=== PATIENT | female | born 1955 | race Caucasian/White ===

== ENCOUNTER 2019-03-28 17:08 | Emergency (ER) | payer MEDICARE, SELFPAY ==
[2019-03-28 17:10] VITALS: BP 150/64; PULSE 70; RESP 19; TEMP 36.1; O2SAT 100
--- NOTE | 2019-03-28 17:32 | ED.DENTAL ---
HPI - Dental/Oral General Chief complaint: Dental/Oral Stated complaint: dental pain Time Seen by Provider: 03/28/19 17:15 Source: patient Mode of arrival: ambulatory Limitations: no limitations History of Present Illness HPI Narrative: This is a 63 year old female that presents to the ER for right sided upper tooth pain after a procedure 2 days ago. Reports she had a root canal at the [facility]. Reports since she has been having throbbing pain in the tooth. Reports she has been taking OTC pain medication with little relief. Reports she has an appointment for follow up, but not until the beginning of April. Denies fever, erythema or edema. MD Complaint: tooth pain Location: Tooth # (3) Related Data Home Medications Medication Instructions Recorded Confirmed aripiprazole mg 03/28/19 rosuvastatin mg 03/28/19 Allergies Allergy/AdvReac Type Severity Reaction Status Date / Time melatonin Allergy Mild Rash Verified 03/28/19 17:22 brexpiprazole Allergy Unknown Unknown Verified 03/28/19 17:13 Penicillins Allergy Unknown Unknown Verified 03/28/19 17:13 zolpidem Allergy Unknown Unknown Verified 03/28/19 17:13 Review of Systems Review of Systems: Narrative: CONSTITUTIONAL: Denies fever ENT: Reports dentalgia All systems reviewed & are unremarkable except as noted in HPI and below PMFSH Past Medical History Medical History (Updated 03/28/19 @ 17:39 by Yesica Pabon PA-C) History of bipolar disorder Surgical History Surgical History (Updated 03/28/19 @ 17:36 by Yesica Pabon PA-C) History of cholecystectomy History of hysterectomy History of tonsillectomy History of tubal ligation Family History Family History (Updated 09/05/17 @ 08:17 by DOCTOR UNKNOWN) Father Diabetes mellitus Family history of elevated blood lipids Mother Family history of elevated blood lipids Social History Social History (Updated 03/28/19 @ 17:36 by Yesica Pabon PA-C) Smoking status: Former smoker Smoking end date: 02/19/08 Alcohol intake: never Substance use: never Gender identity (if verbalized by the patient): Male Exam Narrative: Exam Narrative: GENERAL: Well-appearing, well-nourished, and in no acute distress. HEAD: Normocephalic, atraumatic. EYES: EOMI. ENT: Mucous membranes moist. Oropharynx without tonsillar hypertrophy exudate or other lesions. Tooth #3 tender to palpation without surrounding edema, erythema or fluctuance. No trismus NECK: Supple. No adenopathy or masses. CHEST: Clear to auscultation. No respiratory distress. No wheezes rales or rhonchi HEART: Regular rate and rhythm. No murmur heard. Normal peripheral pulses. EXTREMITIES: Normal range of motion. No edema. SKIN: Warm, dry, no rash. NEURO: No focal deficits. Alert and oriented x3. PSYCH: Normal mood and affect Course Vital Signs Vital signs: Vital Signs Temperature 97.0 F L 03/28/19 17:10 Pulse Rate 70 03/28/19 17:10 Respiratory Rate 19 03/28/19 17:10 Blood Pressure 150/64 H 03/28/19 17:10 Pulse Oximetry 100 03/28/19 17:10 Temperature 97.0 F L 03/28/19 17:10 Pulse Rate 70 03/28/19 17:10 Respiratory Rate 19 03/28/19 17:10 Blood Pressure 150/64 H 03/28/19 17:10 Pulse Oximetry 100 03/28/19 17:10 MDM - Dental/Oral MDM Narrative Medical decision making narrative: Patient presents to the ER for toothache after recent dental procedure. She is afebrile and nontoxic appearing. No surrouding erythema or fluctuance to suggest abscess. Patient given a dose of toradol in the ED and will be started on oral antibiotics. She is to follow up with her dentist Critical Care Time Critical Care Time Critical Care Time: No Discharge Plan Discharge Clinical Impression: Toothache Patient Disposition: Home, Self-Care Condition: Stable Instructions: Antibiotic Form, Toothache (ED) Additional Instructions: Return to the Emergency Department if you experience fever >101, increasing
[2019-03-28] MEDS: CLINDAMYCIN HCL 150 MG CAP 300 MG PO (17:54)
[2019-03-28] MEDS: KETOROLAC (*BKC) 60 MG/2 ML VIAL IM (17:54)
--- NOTE | 2019-03-28 17:54 | PC.NURSE ---
toradol inj to left deltoid per orders
== END 2019-03-28 19:14 | disposition home or self-care (01) ==
PROVIDERS: Emergency Provider Emergency Medicine; PCP Family Medicine
DX: K08.89 Other specified disorders of teeth and supporting structures (principal); Z87.891 Personal history of nicotine dependence; F31.9 Bipolar disorder, unspecified
CPT/HCPCS: 96372; 99283; A9270; J1885

== ENCOUNTER 2019-08-19 07:59 | Emergency (ER) | payer MEDICARE, SELFPAY ==
--- NOTE | ~2019-08-19 | XR_ITS ---
EXAMINATION: XR chest 2V EXAM DATE: 08/19/2019 08:57 INDICATION: Left-sided upper chest pain, weakness. Lightheadedness. TECHNIQUE: Frontal and lateral projections of the chest obtained and reviewed. Comparison is made to prior examination from 12/25/2018. FINDINGS: The lungs are clear. There are no pleural effusions. The cardiomediastinal silhouette is within normal limits. There is no pneumothorax suspected. The bones and soft tissues are unremarkab le. There are cholecystectomy clips. There is no significant interval change. IMPRESSION: No acute cardiopulmonary findings. Reviewed, dictated and finalized at location B.
[2019-08-19 08:20] VITALS: BP 103/53; PULSE 62; RESP 17; TEMP 36.9; O2SAT 100
--- NOTE | 2019-08-19 08:25 | ECG_ITS ---
Measurements Intervals [place] Rate: 57 P: 42 TX: 164 QRS: 31 QRSD: 91 T: 30 QT: 403 QTc: 395 Interpretive Statements SINUS BRADYCARDIA BORDERLINE T WAVE ABNORMALITY- ANTERIOR LEADS BORDERLINE ECG Electronically Signed On 08-19-2019 8:47:25 CDT by Rodolfo Lawrence D.O.
[2019-08-19 08:29] VITALS: PULSE 71
[2019-08-19] MEDS: ASPIRIN 81 MG CHEWABLE TABLET 324 MG PO (08:38)
--- NOTE | 2019-08-19 08:53 | PC.NURSE ---
Tried getting blood from pt and was unable to obtain on first try, then radiology came to take pt for xray. I will attempt again when pt returns.
--- NOTE | 2019-08-19 09:14 | PC.NURSE ---
pt to xray via stretcher
[2019-08-19 09:20] LABS: Basophils Absolute Auto 0.1 K/mm3 (0.0-0.1); Basophils Percent Auto 0.7 % (0.2-1.2); Eosinophils Absolute Auto 0.2 K/mm3 (0-0.3); Eosinophils Percent Auto 2.7 % (0-4.4); Hematocrit 43.2 % (37.0-47.0); Hemoglobin 14.5 g/dL (12.0-15.0); Immature Granulocyte Absolute 0.01 K/mm3 (0.00-0.031); Immature Granulocyte Percent A 0.1 % (0-0.5); Lymphocytes Absolute Auto 1.65 K/mm3 (0.9-3.2); Lymphocytes Percent Auto 24.5 % (18.3-44.2); Mean Corpuscular HGB Conc 33.6 g/dl (32-36); Mean Corpuscular Hemoglobin 30.1 pg (26-34); Mean Corpuscular Volume 89.6 fl (80-100); Mean Platelet Volume 12.6 fl (7.4-10.4); Monocytes Absolute Auto 0.4 K/mm3 (0.1-0.6); Monocytes Percent Auto 5.6 % (2.6-8.5); Neutrophils Absolute Auto 4.5 K/mm3 (1.3-6.7); Neutrophils Percent Auto 66.4 % (45.5-73.1); Platelet Count Result 146 k/mm3 (150-375); Red Blood Count 4.82 M/mm3 (4.2-5.4); Red Cell Distribution Width 12.1 % (11.5-14.5); White Blood Count 6.7 K/mm3 (4.5-10.0)
[2019-08-19 09:30] LABS: Prothrombin Time 12.5 Seconds (11.1-14.7)
[2019-08-19 09:31] LABS: Partial Thromboplastin Time 20.7 SECONDS (22.3-36.8)
[2019-08-19 09:34] LABS: Blood Urea Nitrogen 27 mg/dL (7-17); Calcium 10.1 mg/dL (8.4-10.2); Carbon Dioxide 30 mmol/L (22-30); Chloride 104 mmol/L (98-107); Estimated CRCL calculation 81 ml/min; Estimated Glomerular Filt Rate > 60; Glucose 119 mg/dL (65-105); Potassium 3.8 mmol/L (3.4-5.0); Sodium 138 mmol/L (137-145)
[2019-08-19 09:38] VITALS: BP 105/62; PULSE 73; RESP 21; O2SAT 100
[2019-08-19 09:46] LABS: Troponin I < 0.012 ng/mL (0.000-0.034)
--- NOTE | 2019-08-19 10:39 | ED.CHESTPAIN ---
HPI - Chest Pain General Chief Complaint: Chest Pain Stated Complaint: chest pain, dizzy Time Seen by Provider: 08/19/19 09:04 History of Present Illness HPI narrative: Patient is a 64-year-old female with history of mitral valve prolapse that is mild. 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 Dizziness proceeded with chest pain. Both lasted about 30 minutes. Lightheadedness was that things appeared yellow. She had no dyspnea/nausea/vomiting. She was mildly sweaty. No change with head rotation or physical exertion. Has not had similar symptoms previously. She is concerned it may be related to her mitral valve prolapse. No history of coronary disease. Symptoms resolved at this time. Originally chest pain was dull and located to the left upper chest near the shoulder. Related Data Home Medications Medication Instructions Recorded Confirmed aripiprazole mg 03/28/19 rosuvastatin mg 03/28/19 Allergies Allergy/AdvReac Type Severity Reaction Status Date / Time melatonin Allergy Mild Rash Verified 08/19/19 08:27 brexpiprazole Allergy Unknown Unknown Verified 08/19/19 08:27 Penicillins Allergy Unknown Unknown Verified 08/19/19 08:27 zolpidem Allergy Unknown Unknown Verified 08/19/19 08:27 Review of Systems Review of Systems: All systems reviewed & are unremarkable except as noted in HPI and below Constitutional: Constitutional: Denies chills, Denies fever(s) and Denies weakness Eyes: Eyes: Reports change in vision Cardiovascular: Cardiovascular: Reports chest pain, Denies rapid heart rate and Denies radiating jaw, neck or arm pain Gastrointestinal: Gastrointestinal: Denies abdominal pain, Reports nausea and Denies vomiting [facility] Past Medical History Medical History (Updated 08/19/19 @ 13:28 by David Osborn MD) History of bipolar disorder Mitral valve prolapse Surgical History Surgical History (Updated 03/28/19 @ 17:36 by Yesica Pabon PA-C) History of cholecystectomy History of hysterectomy History of tonsillectomy History of tubal ligation Family History Family History (Updated 09/05/17 @ 08:17 by DOCTOR UNKNOWN) Father Diabetes mellitus Family history of elevated blood lipids Mother Family history of elevated blood lipids Social History Social History (Updated 03/28/19 @ 17:36 by Yesica L. Pabon, PA-C) Smoking status: Former smoker Smoking end date: 02/19/08 Alcohol intake: never Substance use: never Gender identity (if verbalized by the patient): Male Exam Narrative: Exam Narrative: GENERAL: Well-appearing, well-nourished, and in no acute distress. HEAD: Normocephalic, atraumatic. ENT: Mucous membranes moist. CHEST: Clear to auscultation. No respiratory distress. No reproducible chest wall tenderness HEART: Bradycardic and regular. Normal peripheral pulses. ABDOMEN: Soft, nontender, nondistended. EXTREMITIES: Normal range of motion. No edema. SKIN: Warm, dry, no rash. NEURO: Alert and oriented x3. Course Vital Signs Vital signs: Vital Signs Temperature 98.5 F 08/19/19 08:20 Pulse Rate 62 08/19/19 08:20 Respiratory Rate 17 08/19/19 08:20 Blood Pressure 103/53 L 08/19/19 08:20 Pulse Oximetry 100 08/19/19 08:20 Temperature 98.5 F 08/19/19 08:20 Pulse Rate 64 08/19/19 13:19 Respiratory Rate 20 08/19/19 13:19 Blood Pressure 106/46 L 08/19/19 13:19 Pulse Oximetry 98 08/19/19 13:19 MDM - Chest Pain Lab Data Result diagrams: 08/19/19 09:14 08/19/19 09:14 Labs: Lab Results 08/19/19 08/19/19 08/19/19 Range/Units 09:14 09:14 09:14 WBC 6.7 (4.5-10.0) K/mm3 RBC 4.82 (4.2-5.4) M/mm3 Hgb 14.5 (12.0-15.0) g/dL Hct 43.2 (37.0-47.0) % MCV 89.6 (80-100) fl MCH 30.1 (26-34) pg MCHC 33.6 (32-36) g/dl RDW 12.1 (11.5-14.5) % Plt Count 146 L (150-375) k/mm3 MPV 12.6 H (7.4-10.4) fl
[2019-08-19 11:11] VITALS: BP 99/54; PULSE 73; RESP 22; O2SAT 99
[2019-08-19 12:22] VITALS: BP 106/46; PULSE 63; RESP 16; O2SAT 100
[2019-08-19 12:58] LABS: Troponin I < 0.012 ng/mL (0.000-0.034)
[2019-08-19 13:19] VITALS: BP 106/46; PULSE 64; RESP 20; O2SAT 98
== END 2019-08-19 14:00 | disposition home or self-care (01) ==
PROVIDERS: Emergency Provider Emergency Medicine; PCP Family Medicine
DX: R07.9 Chest pain, unspecified (principal); I34.1 Nonrheumatic mitral (valve) prolapse; F31.9 Bipolar disorder, unspecified; Z87.891 Personal history of nicotine dependence; R00.1 Bradycardia, unspecified; R94.31 Abnormal electrocardiogram [ECG] [EKG]
CPT/HCPCS: 36415; 71046; 80048; 84484; 85025; 85610; 85730; 93005; 99284; A9270

== ENCOUNTER 2019-12-09 11:43 | Outpatient (CLI) | payer MEDICARE, SELFPAY ==
--- NOTE | ~2019-12-09 | MM_ITS ---
EXAMINATION: MM screening oscar BI w bela HISTORY: Screening mammogram TECHNIQUE: Craniocaudal and mediolateral oblique 3-D tomosynthesis images were obtained and synthetic 2-D images were generated. CAD analysis was submitted and interpreted. COMPARISON: 10/10/2018, 09/23/2014 bilateral digital screening mammogram examinations BREAST PARENCHYMAL COMPOSITION: There are scattered areas of fibroglandular density. FINDINGS: There is no evidence of suspicious mass, calcification, or architectural distortion to sugg est malignancy in either breast. There has been no suspicious interval change. IMPRESSION: 1. No mammographic evidence of malignancy. 2. Recommend routine screening mammography in one year. BI-RADS Category 1: Negative Reviewed, dictated and finalized at location A.
== END 2019-12-09 11:44 | disposition home or self-care (01) ==
LOC: ANHIMG 11:44
PROVIDERS: PCP Family Medicine; Visit Provider Family Medicine
DX: Z12.31 Encounter for screening mammogram for malignant neoplasm of breast (principal)
CPT/HCPCS: 77063; 77067

== ENCOUNTER 2020-02-26 14:53 | Emergency (ER) | payer MEDICARE, SELFPAY ==
--- NOTE | ~2020-02-26 | XR_ITS ---
XR chest 2V DATE: 02/26/2020 15:45 INDICATION: Left chest pain for one day TECHNIQUE: PA and lateral views COMPARISON: 08/19/2019 PA and lateral views FINDINGS: Normal heart size. No hilar or mediastinal enlargement. No pulmonary infiltrate or conso lidation, pulmonary vascular congestion or pleural effusion or pneumothorax. Status post cholecystectomy. IMPRESSION: No active cardiopulmonary disease Reviewed, dictated and finalized at location B. ER BARBER
--- NOTE | 2020-02-26 14:55 | ECG_ITS ---
Measurements Intervals [place] Rate: 106 P: 47 MO: 141 QRS: -71 QRSD: 87 T: 18 QT: 337 QTc: 449 Interpretive Statements SINUS TACHYCARDIA LEFT ANTERIOR FASCICULAR BLOCK ABNORMAL ECG Electronically Signed On 02-26-2020 15:09:00 [employer]IDE [employer] by Rodolfo Lawrence D.O.
[2020-02-26 15:05] VITALS: BP 173/74; PULSE 108; RESP 20; TEMP 36.3; O2SAT 96
[2020-02-26 15:29] LABS: Basophils Absolute Auto 0.1 K/mm3 (0.0-0.1); Eosinophils Absolute Auto 0.1 K/mm3 (0-0.3); Eosinophils Percent Auto 1.8 % (0-4.4); Hematocrit 42.1 % (37.0-47.0); Hemoglobin 14.6 g/dL (12.0-15.0); Immature Granulocyte Absolute 0.02 K/mm3 (0.00-0.031); Immature Granulocyte Percent A 0.3 % (0-0.5); Lymphocytes Absolute Auto 2.46 K/mm3 (0.9-3.2); Mean Corpuscular HGB Conc 34.7 g/dl (32-36); Mean Corpuscular Hemoglobin 30.9 pg (26-34); Mean Platelet Volume 11.9 fl (7.4-10.4); Monocytes Absolute Auto 0.5 K/mm3 (0.1-0.6); Monocytes Percent Auto 6.8 % (2.6-8.5); Neutrophils Absolute Auto 3.9 K/mm3 (1.3-6.7); Neutrophils Percent Auto 55.1 % (45.5-73.1); Platelet Count Result 184 k/mm3 (150-375); Red Blood Count 4.73 M/mm3 (4.2-5.4); Red Cell Distribution Width 11.8 % (11.5-14.5)
[2020-02-26 15:33] VITALS: BP 142/68; PULSE 92; PULSE 99; RESP 18; O2SAT 98
[2020-02-26 15:42] LABS: Anion Gap 9 mmol/L (8-16); Blood Urea Nitrogen 19 mg/dL (7-17); Calcium 10.3 mg/dL (8.4-10.2); Carbon Dioxide 27 mmol/L (22-30); Chloride 102 mmol/L (98-107); Estimated CRCL calculation 73 ml/min; Estimated Glomerular Filt Rate > 60; Glucose 115 mg/dL (65-105); INR 0.9; Potassium 3.8 mmol/L (3.4-5.0); Prothrombin Time 12.4 Seconds (11.1-14.7); Sodium 138 mmol/L (137-145)
[2020-02-26 15:49] LABS: Partial Thromboplastin Time < 20.0 SECONDS (22.3-36.8)
[2020-02-26 15:54] LABS: Troponin I < 0.012 ng/mL (0.000-0.034)
[2020-02-26 16:24] VITALS: BP 142/68; PULSE 99; RESP 18; TEMP 36.3; O2SAT 98
[2020-02-26 16:49] VITALS: BP 137/61; PULSE 96; RESP 16; O2SAT 98
--- NOTE | 2020-02-26 16:51 | ED.CHESTPAIN ---
HPI - Chest Pain General Chief Complaint: Chest Pain Stated Complaint: abnormal ekg Time Seen by Provider: 02/26/20 16:47 Source: patient Mode of arrival: ambulatory Limitations: no limitations History of Present Illness HPI narrative: Patient 64-year-old female complaining of chest pain, midsternal, 6 out of 10, pressure, worse with exertion started this morning. Patient was seen at [facility], was advised to go to the ER for abnormal EKG. patient denies any diaphoresis, shortness of breath, abdominal pain, nausea, vomiting, fever or chills. Related Data Home Medications Medication Instructions Recorded Confirmed aripiprazole mg 03/28/19 rosuvastatin mg 03/28/19 citalopram mg 02/26/20 trazodone 02/26/20 02/26/20 Allergies Allergy/AdvReac Type Severity Reaction Status Date / Time melatonin Allergy Mild Rash Verified 02/26/20 14:56 brexpiprazole Allergy Unknown Unknown Verified 02/26/20 14:56 Penicillins Allergy Unknown Unknown Verified 02/26/20 14:56 zolpidem Allergy Unknown Unknown Verified 02/26/20 14:56 Review of Systems Review of Systems: All systems reviewed & are unremarkable except as noted in HPI and below Constitutional: Constitutional: Denies body ache(s), Denies chills, Denies excessive sweating, Denies fatigue, Denies fever(s), Denies headache(s), Denies lethargy, Denies malaise, Denies weakness and Denies weight loss Eyes: Eyes: Denies blurry vision, Denies change in vision and Denies loss of vision ENT: Denies dizziness, Denies ear discharge, Denies headache(s), Denies lip swelling, Denies epistaxis, Denies nasal congestion, Denies neck pain, Denies throat swelling and Denies tongue swelling Cardiovascular: Cardiovascular: Denies diaphoresis, Denies rapid heart rate, Denies edema, Denies irregular heart rhythm, Denies lightheadedness, Denies palpitations, Denies dyspnea and Denies dyspnea on exertion Respiratory: Respiratory: Denies chest congestion, Denies cough, Denies hemoptysis, Denies dyspnea and Denies dyspnea on exertion Gastrointestinal: Gastrointestinal: Denies abdominal pain, Denies melena, Denies hematochezia, Denies diarrhea, Denies nausea, Denies vomiting and Denies hematemesis Musculoskeletal: Musculoskeletal: Denies abnormal gait, Denies deformity, Denies joint swelling, Denies limited range of motion, Denies neck pain and Denies numbness Neurologic: Denies Abnormal speech present, Denies abnormal gait, Denies confusion, Denies dizziness, Denies headache(s), Denies focal weakness, Denies loss of vision, Denies numbness, Denies Other visual disturbances, Denies Sensory deficit (Neuro) and Denies weakness Psychiatric: Psychiatric: Denies confusion, Denies depression, Denies auditory hallucinations, Denies homicidal ideation and Denies suicidal ideation Endocrine: Endocrine: Denies cold intolerance, Denies excessive sweating, Denies fatigue, Denies heat intolerance and Denies palpitations Hematologic/Lymphatic: Hematologic/Lymphatic: Denies easy bleeding and Denies easy bruising Allergic/Immunologic: Allergic/Immunologic: Denies lip swelling, Denies throat swelling and Denies tongue swelling PMFSH Past Medical History Medical History History of bipolar disorder Mitral valve prolapse Surgical History Surgical History History of cholecystectomy History of hysterectomy History of tonsillectomy History of tubal ligation Family History Family History Father Diabetes mellitus Family history of elevated blood lipids Mother Family history of elevated blood lipids Social History Social History Smoking status: Former smoker Smoking end date: 02/19/08 Alcohol intake: never Substance use: never Gender identity (if verbalized by the patient): Fem
[2020-02-26 17:41] VITALS: BP 142/60; PULSE 93; RESP 16; O2SAT 98
[2020-02-26 18:48] LABS: Troponin I < 0.012 ng/mL (0.000-0.034)
== END 2020-02-26 18:40 | disposition left against medical advice (07) ==
PROVIDERS: Emergency Provider Emergency Medicine; PCP Family Medicine
DX: R07.89 Other chest pain (principal); I34.1 Nonrheumatic mitral (valve) prolapse; F31.9 Bipolar disorder, unspecified; Z87.891 Personal history of nicotine dependence; R00.0 Tachycardia, unspecified; I44.4 Left anterior fascicular block
CPT/HCPCS: 36415; 71046; 80048; 84484; 85025; 85610; 85730; 93005; 99284

== ENCOUNTER → 2020-05-23 09:19 | Outpatient (CLI) | payer MEDICARE, SELFPAY ==
--- NOTE | ~2020-05-23 | XR_ITS ---
EXAMINATION: XR ankle LT min 3V, XR foot LT min 3V DATE: 05/23/2020 09:45 INDICATION: Left foot and ankle pain TECHNIQUE: 1. Anteroposterior, oblique, mortise, and lateral views of the affected ankle were obtained. 2. Dorsal plantar, lateral and 2 oblique views of the left foot were obtained. COMPARISON: None. FINDINGS: Alignment of the left foot and ankle is normal. No fracture. Small Achilles and plantar calcaneal spu rs. Mild osteoarthritis at the first metatarsophalangeal and a few interphalangeal joints. Soft tissu es are unremarkable. No left ankle joint effusion. IMPRESSION: 1. No acute osseous abnormality. Reviewed, dictated and finalized at location B. IMPRESSION: 1. No acute osseous abnormality.
--- NOTE | ~2020-05-23 | CT_ITS ---
EXAMINATION:CT lung screening DATE: 05/23/2020 09:50 INDICATION: Personal history of tobacco dependence. Smoker who quit 10 years ago with 52.5 pack year history. TECHNIQUE: Computed tomography (CT) of the chest was performed without intravenous contrast. Automate d exposure control and iterative reconstruction technique were employed. The dose-length product (DLP ) was 192.24 mGy-cm. COMPARISON: None. FINDINGS: There is mild atelectasis bilaterally. There is a 3 mm nodule in left lower lobe. No pleura l effusion. The heart size is normal. No pericardial effusion. There are changes of cholecystectomy. There is severe thoracic spondylosis. There is mild chronic anterior wedging of multiple midthoracic vertebral bodies. IMPRESSION: 1. Lung-RADS category 2: Benign appearance or behavior. Continue annual screening with noncontrast lo w-dose chest CT in 12 months. Reviewed, dictated and finalized at location A. IMPRESSION: 1. Lung-RADS category 2: Benign appearance or behavior. Continue annual screeni ng with noncontrast low-dose chest CT in 12 months.
== END ==
PROVIDERS: PCP Family Medicine; Visit Provider Family Medicine
DX: Z12.2 Encounter for screening for malignant neoplasm of respiratory organs (principal); Z87.891 Personal history of nicotine dependence; M19.072 Primary osteoarthritis, left ankle and foot
CPT/HCPCS: 71271; 73610; 73630

== ENCOUNTER → 2020-06-21 15:53 | Outpatient (CLI) | payer MEDICARE, SELFPAY ==
--- NOTE | ~2020-06-21 | XR_ITS ---
EXAMINATION: XR hip BI wo pelvis DATE: 06/21/2020 17:25 INDICATION: Bilateral hip pain. TECHNIQUE: 2 views of right hip and 2 views of left hip were obtained. COMPARISON: None. FINDINGS: Bone alignment is normal. No fracture. The hip joint spaces are normal. A surgical clip ove rlies right pelvis. IMPRESSION: 1. Normal hips. Reviewed, dictated and finalized at location A. IMPRESSION: 1. Normal hips.
--- NOTE | ~2020-06-21 | XR_ITS ---
EXAMINATION: XR lumbar spine 2-3V DATE: 06/21/2020 17:25 INDICATION: Low back pain. TECHNIQUE: 3 views of lumbar spine were obtained. COMPARISON: None. FINDINGS: Bone alignment is normal. Vertebral body heights are normal. There is severely decreased di sc height at L4-L5 with endplate remodeling. There are endplate osteophytes at most levels. There is multilevel mild facet joint osteoarthritis. Surgical clips in the right upper quadrant are likely fro m cholecystectomy. IMPRESSION: 1. Severe lumbar spondylosis. Reviewed, dictated and finalized at location A.
== END ==
PROVIDERS: PCP Family Medicine; Visit Provider Family Medicine
DX: M62.81 Muscle weakness (generalized) (principal); M47.816 Spondylosis without myelopathy or radiculopathy, lumbar region; M25.552 Pain in left hip; M25.551 Pain in right hip
CPT/HCPCS: 72100; 73521

== ENCOUNTER → 2020-07-27 11:57 | Outpatient (CLI) | payer MEDICARE, SELFPAY ==
--- NOTE | ~2020-07-27 | MR_ITS ---
EXAMINATION: MR lumbar spine wo con DATE: 07/27/2020 12:54 INDICATION: Low back pain. Degeneration of lumbar intervertebral disc. TECHNIQUE: Magnetic resonance imaging (MRI) of the lumbar spine was performed without intravenous con trast. Sequences included sagittal T2-weighted FSE, sagittal T2-weighted FS FSE, sagittal T1-weighted FSE, and axial T2-weighted FSE. COMPARISON: Lumbar spine radiographs 06/21/2020 FINDINGS: Bone alignment is normal. There is mild chronic anterior wedging of L1 vertebral body. Ther e are Schmorl's nodes at most levels. There is mildly decreased disc height at L1-L2 and L2-L3. There is severely decreased disc height at L4-L5 with endplate remodeling. The distal spinal cord signal i ntensity is normal. The conus medullaris is at L1-L2. The following disc levels are specifically disc ussed: L1-L2: The disc is bulging. There is mild bilateral facet joint osteoarthritis. There is no neural fo raminal stenosis. There is mild central canal stenosis. L2-L3: The disc is bulging. There is mild bilateral facet joint osteoarthritis. There is mild bilater al neural foraminal stenosis. There is mild central canal stenosis. L3-L4: The disc is bulging. There is mild bilateral facet joint osteoarthritis. There is mild bilater al neural foraminal stenosis. There is mild central canal stenosis. L4-L5: The disc is bulging and has an annular fissure. There is mild bilateral facet joint osteoarthr itis. There is moderate bilateral neural foraminal stenosis. There is mild central canal stenosis. L5-S1: The disc is bulging. There is moderate bilateral facet joint osteoarthritis. There is mild yaya ateral neural foraminal stenosis. There is mild central canal stenosis. IMPRESSION: 1. Severe lumbar spondylosis. Reviewed, dictated and finalized at location A.
== END ==
PROVIDERS: PCP Family Medicine; Visit Provider Family Medicine
DX: M47.817 Spondylosis without myelopathy or radiculopathy, lumbosacral region (principal); M48.07 Spinal stenosis, lumbosacral region
CPT/HCPCS: 72148

== ENCOUNTER 2020-11-07 14:59 | Outpatient (CLI) | payer MEDICARE, SELFPAY ==
[2020-11-07 15:43] LABS: Basophils Absolute Auto 0.1 K/mm3 (0.0-0.1); Basophils Percent Auto 1.1 % (0.2-1.2); Eosinophils Absolute Auto 0.2 K/mm3 (0-0.3); Eosinophils Percent Auto 4.9 % (0-4.4); Hematocrit 39.3 % (37.0-47.0); Hemoglobin 13.2 g/dL (12.0-15.0); Immature Granulocyte Absolute 0.01 K/mm3 (0.00-0.031); Immature Granulocyte Percent A 0.2 % (0-0.5); Lymphocytes Absolute Auto 1.76 K/mm3 (0.9-3.2); Lymphocytes Percent Auto 39.6 % (18.3-44.2); Mean Corpuscular HGB Conc 33.6 g/dl (32-36); Mean Corpuscular Hemoglobin 30.9 pg (26-34); Mean Platelet Volume 12.5 fl (7.4-10.4); Monocytes Absolute Auto 0.3 K/mm3 (0.1-0.6); Monocytes Percent Auto 7.2 % (2.6-8.5); Neutrophils Absolute Auto 2.1 K/mm3 (1.3-6.7); Platelet Count Result 146 k/mm3 (150-375); Red Blood Count 4.27 M/mm3 (4.2-5.4); Red Cell Distribution Width 12.8 % (11.5-14.5); White Blood Count 4.5 K/mm3 (4.5-10.0)
[2020-11-07 15:57] LABS: Alanine Aminotransferase 40 U/L (4-35); Albumin Level 4.4 g/dL (3.5-5.1); Alkaline Phosphatase 60 U/L (38-126); Anion Gap 8 mmol/L (8-16); Aspartate Amino Transferase 41 U/L (14-36); Bilirubin,Total 0.6 mg/dL (0.2-1.3); Blood Urea Nitrogen 15 mg/dL (7-17); Calcium 9.8 mg/dL (8.4-10.2); Carbon Dioxide 24 mmol/L (22-30); Chloride 110 mmol/L (98-107); Cholesterol 141 mg/dL (0-200); Estimated Glomerular Filt Rate > 60; Glucose 100 mg/dL (65-110); HDL Direct 65 mg/dL; Potassium 4.1 mmol/L (3.4-5.0); Sodium 142 mmol/L (137-145); Triglycerides 104 mg/dL (<150)
[2020-11-07 16:08] LABS: LDL Cholesterol Direct 44 mg/dL
[2020-11-07 17:20] LABS: Hemoglobin A1C 5.4 % (<5.7)
[2020-11-07 19:21] LABS: Vitamin D 25 Hydroxy 42.2 ng/mL
== END 2020-11-07 15:00 | disposition home or self-care (01) ==
LOC: ANHLAB 15:01
PROVIDERS: PCP Family Medicine; Visit Provider Family Medicine
DX: E55.9 Vitamin D deficiency, unspecified (principal); R73.9 Hyperglycemia, unspecified; E78.5 Hyperlipidemia, unspecified; I10 Essential (primary) hypertension
CPT/HCPCS: 36415; 80048; 80061; 80076; 82306; 83036; 85025

== ENCOUNTER 2021-02-22 13:28 | Outpatient (CLI) | payer MEDICARE, SELFPAY ==
--- NOTE | ~2021-02-22 | MM_ITS ---
EXAMINATION: MM screening [facility] BI w bela HISTORY: Screening mammogram TECHNIQUE: Craniocaudal and mediolateral oblique 3-D tomosynthesis images were obtained and synthetic 2-D images were generated. CAD analysis was submitted and interpreted. COMPARISON: 12/09/2019, 10/10/2018, 09/23/2014 BREAST PARENCHYMAL COMPOSITION: There are scattered areas of fibroglandular density. FINDINGS: There is no evidence of suspicious mass, calcification, or architectural distortion to sugg est malignancy in either breast. There has been no suspicious interval change. IMPRESSION: 1. No mammographic evidence of malignancy. 2. Recommend routine screening mammography in one year. BI-RADS Category 1: Negative Reviewed, dictated and finalized at location A. K BIOLOGIST
== END 2021-02-22 13:29 | disposition home or self-care (01) ==
LOC: ANHIMG 13:30
PROVIDERS: PCP Family Medicine; Visit Provider Family Medicine
DX: Z12.31 Encounter for screening mammogram for malignant neoplasm of breast (principal)
CPT/HCPCS: 77063; 77067

== ENCOUNTER → 2021-08-17 08:21 | Outpatient (CLI) | payer MEDICARE, SELFPAY ==
--- NOTE | ~2021-08-17 | MR_ITS ---
EXAMINATION: MR lumbar spine wo con DATE: 08/17/2021 09:06 INDICATION: Degeneration of lumbar intervertebral discs. 2 months of low back pain. TECHNIQUE: Magnetic resonance imaging (MRI) of the lumbar spine was performed without intravenous con trast. Sequences included sagittal T2-weighted FSE, sagittal T2-weighted FS FSE, sagittal T1-weighted FSE, and axial T2-weighted FSE. COMPARISON: 08/06/2020 FINDINGS: Alignment of the lumbar spine is normal. Mild thoracic levoscoliosis on the thoracic spine on the cor onal localizer images. Unchanged minimal anterior wedging at L1. Remaining vertebral body heights are normal. There are Schmorl's nodes along multiple endplates in the lumbar and lower thoracic spine. S evere disc height loss at L4-L5 with fibrovascular degenerative endplate changes. Mild disc height lo ss at L1-L2 and L2-L3. Mild fibrofatty degenerative endplate changes at the anterior margin of multip le superior and inferior endplates in the lumbar and lower thoracic spine. Marrow signal is otherwise normal. The conus medullaris terminates at L1. There is normal signal in the caudal spinal cord. Unc hanged 1.6 cm T2 hyperintense left ovarian cyst. Paravertebral soft tissues are unremarkable. The fol lowing disc levels are specifically discussed: T12-L1: Disc is mildly bulging. There is mild right facet joint osteoarthritis. There is no neural fo raminal stenosis. There is mild central canal stenosis. L1-L2: Disc is mildly bulging. There is mild bilateral facet joint osteoarthritis. There is minimal b ilateral neural foraminal stenosis. There is mild central canal stenosis. L2-L3: Moderate diffuse disc bulge. There is mild bilateral facet joint osteoarthritis. There is mild bilateral neural foraminal stenosis. There is mild central canal stenosis. L3-L4: Disc is mildly bulging with superimposed small left foraminal zone disc protrusion. There is m ild bilateral facet joint osteoarthritis. There is mild left and minimal right neural foraminal steno sis. There is mild central canal stenosis. L4-L5: Disc is bulging with annular fissure. There is mild right and moderate left facet joint osteoa rthritis. There is moderate bilateral neural foraminal stenosis. There is mild central canal stenosis . L5-S1: Disc is mildly bulging. There is moderate bilateral facet joint osteoarthritis. There is mild bilateral neural foraminal stenosis. There is no central canal stenosis. IMPRESSION: 1. Minimal progression of lumbar spondylosis, severe at L4-L5 and otherwise mild. Reviewed, dictated and finalized at location A. IMPRESSION: 1. Minimal progression of lumbar spondylosis, severe at L4-L5 and otherwise mil dAngelo
== END ==
PROVIDERS: PCP Family Medicine; Visit Provider Family Medicine
DX: M47.815 Spondylosis without myelopathy or radiculopathy, thoracolumbar region (principal); M48.05 Spinal stenosis, thoracolumbar region; M47.817 Spondylosis without myelopathy or radiculopathy, lumbosacral region; M48.07 Spinal stenosis, lumbosacral region; N83.202 Unspecified ovarian cyst, left side; M41.9 Scoliosis, unspecified
CPT/HCPCS: 72148

== ENCOUNTER 2022-05-07 15:21 | Outpatient (CLI) | payer MEDICARE, SELFPAY ==
--- NOTE | ~2022-05-07 | MM_ITS ---
EXAMINATION: MM screening [facility]scar BI w bela HISTORY: Screening TECHNIQUE: Craniocaudal and mediolateral oblique 3-D tomosynthesis images were obtained and synthetic 2-D images were generated. CAD analysis was submitted and interpreted. COMPARISON: Comparison to multiple prior studies sequentially, with oldest reviewed study dated 07/28. BREAST PARENCHYMAL COMPOSITION: There are scattered areas of fibroglandular density. FINDINGS: There is no evidence of suspicious mass, calcification, or architectural distortion to sugg est malignancy in either breast. There has been no suspicious interval change. IMPRESSION: 1. No mammographic evidence of malignancy. 2. Recommend routine screening mammography in one year. BI-RADS Category 1: Negative Reviewed, dictated and finalized at location A.
== END 2022-05-07 15:22 | disposition home or self-care (01) ==
LOC: ANHIMG 15:23
PROVIDERS: PCP Family Medicine Sports Medicine; Visit Provider Family Medicine Sports Medicine
DX: Z12.31 Encounter for screening mammogram for malignant neoplasm of breast (principal)
CPT/HCPCS: 77063; 77067

== ENCOUNTER 2023-01-19 11:12 | Emergency (ER) | payer MEDICARE, SELFPAY ==
[2023-01-19 11:27] VITALS: BP 157/70; PULSE 69; RESP 16; TEMP 36.5; O2SAT 100
--- NOTE | 2023-01-19 11:58 | ED.SKABFB ---
HPI - Skin/Abscess/Foreign Bdy General Chief complaint: Skin/Abscess/Foreign Body Stated complaint: Hives Time Seen by Provider: 01/19/23 11:55 Source: patient, RN notes reviewed and old records reviewed Mode of arrival: ambulatory Limitations: no limitations History of Present Illness HPI narrative: 67 year old female presents to express care with complaints of thinking she was having an allergic reaction. Patient reports that she had been taking Jenny for about 5-6 days and she states that first couple of days she had some tingling to her lip which she related to nasal congestion and drainage. Patient report that she noted last night itching and rash around and in between her breasts and also some itching to her back . Patient reports that she called her pharmacist and was told to stop the Jenny and to take 2 Benadryl which she took at arond 0700 today. Patient denies any shortness of breath or any difficulty with her swallowing, continues to feel itchy all over. MD complaint: rash Onset (ago): day(s) (1) Severity scale (1-10): 8 Quality: pruritic Treatments prior to arrival: Benadryl Related Data Home Medications Medication Instructions Recorded Confirmed Stool Softener 01/19/23 aripiprazole 10 mg tablet mg 01/19/23 cholecalciferol (vitamin D3) 10 01/19/23 mcg (400 unit) capsule (Vitamin D3) citalopram 20 mg tablet mg 01/19/23 magnesium glycinate 100 mg tablet mg PO 01/19/23 metoprolol succinate 25 mg mg PO 01/19/23 tablet,extended release 24 hr omega-3 fatty acids PO 01/19/23 rosuvastatin 10 mg tablet mg 01/19/23 vitamin B complex (B tablet 01/19/23 Complex-Vitamin B12 tablet) Allergies Allergy/AdvReac Type Severity Reaction Status Date / Time melatonin Allergy Mild Rash Verified 08/27/22 13:08 brexpiprazole Allergy Unknown Unknown Verified 08/27/22 13:08 Penicillins Allergy Unknown Unknown Verified 01/19/23 11:42 zolpidem Allergy Unknown Unknown Verified 08/27/22 13:08 Review of Systems Review of Systems: CONSTITUTIONAL: Denies fever, chills, or sweats. CARDIOVASCULAR: Denies chest pain, palpitations, or edema. RESPIRATORY: Denies cough or dyspnea. SKIN: Reports some rash to her breast area but has had that before especially in the summer, red raised rash area on back that is itchy MUSCULOSKELETAL: Denies joint pain or myalgia. NEUROLOGIC: Denies headache, numbness, or weakness. All systems reviewed & are unremarkable except as noted in HPI and below PMFSH Past Medical History Medical History History of bipolar disorder Mitral valve prolapse Surgical History Surgical History History of cholecystectomy History of hysterectomy History of tonsillectomy History of tubal ligation Family History Family History Father Diabetes mellitus Family history of elevated blood lipids Hypertension Heart disease Mother Family history of elevated blood lipids Hypertension Depression Cerebrovascular accident Thyroid disorder Sibling Diabetes mellitus Thyroid disorder Other Thyroid disorder Social History Social History Smoking status: Former smoker Smoking end date: 02/19/08 Alcohol intake: never Substance use: never Lack of Transportation: No Lack of Food: Never True Current Housing: I Have Housing Concerned About Future Housing: No Difficulty Paying Gas/Electric Bills: No Difficulty Paying for Meds: No Currently Unemployed: No Education: Associate Degree Difficulty w/ Childcare or Family Care: No Gender identity (if verbalized by the patient): Female Comments At time of signature, agree with nursing past medical, surgical, social and family history. There is no relevant family history pertinent to the presenting complaint
== END 2023-01-19 12:18 | disposition home or self-care (01) ==
PROVIDERS: Emergency Provider Registered Nurse; PCP Family Medicine
DX: L50.0 Allergic urticaria (principal); B37.2 Candidiasis of skin and nail; Z87.891 Personal history of nicotine dependence; I34.1 Nonrheumatic mitral (valve) prolapse
CPT/HCPCS: 99213; G0463

== ENCOUNTER 2023-02-12 13:28 | Emergency (ER) | payer MEDICARE, SELFPAY ==
[2023-02-12 14:09] VITALS: BP 151/71; PULSE 82; RESP 20; TEMP 36.8; O2SAT 98
--- NOTE | 2023-02-12 14:24 | ED.URI ---
HPI - URI/Sore Throat General Chief Complaint: Upper Respiratory Infection Stated Complaint: Shortness of Breath and Cough Time Seen by Provider: 02/12/23 14:15 Source: patient Mode of arrival: ambulatory Limitations: no limitations History of Present Illness HPI Narrative: Mariajose is a 67-year-old female patient presenting to the clinic today with complaints of cough and mild shortness of breath. Reports that she went to [facility] and had a COVID and influenza test done and they were negative. States symptoms have been going on for 2 days. Denies any fever or chills. Feels as though she has got a lot of chest congestion. Cough is nonproductive. MD elicited complaint: cough, nasal congestion and other (Chest congestion) Related Data Home Medications Medication Instructions Recorded Confirmed Stool Softener 01/19/23 aripiprazole 10 mg tablet mg 01/19/23 cholecalciferol (vitamin D3) 10 01/19/23 mcg (400 unit) capsule (Vitamin D3) citalopram 20 mg tablet mg 01/19/23 magnesium glycinate 100 mg tablet mg PO 01/19/23 metoprolol succinate 25 mg mg PO 01/19/23 tablet,extended release 24 hr omega-3 fatty acids PO 01/19/23 rosuvastatin 10 mg tablet mg 01/19/23 vitamin B complex (B tablet 01/19/23 Complex-Vitamin B12 tablet) Allergies Allergy/AdvReac Type Severity Reaction Status Date / Time fexofenadine [From Jenny-D] Allergy Severe Hives Verified 02/01/23 10:27 pseudoephedrine Allergy Severe Hives Verified 02/01/23 10:27 [From Jenny-D] melatonin Allergy Mild Rash Verified 02/01/23 10:26 brexpiprazole Allergy Unknown Unknown Verified 02/01/23 10:26 Penicillins Allergy Unknown Unknown Verified 02/01/23 10:26 zolpidem Allergy Unknown Unknown Verified 02/01/23 10:26 Review of Systems Review of Systems: Pertinent positives per HPI. Patient denies any fever, chills, rash, headache, visual changes, dizziness, chest pain, palpitations, nausea, vomiting, diarrhea, constipation, abdominal pain, or any urinary issues. [facility] Past Medical History Medical History History of bipolar disorder Mitral valve prolapse Surgical History Surgical History History of cholecystectomy History of hysterectomy History of tonsillectomy History of tubal ligation Family History Family History Father Diabetes mellitus Family history of elevated blood lipids Hypertension Heart disease Mother Family history of elevated blood lipids Hypertension Depression Cerebrovascular accident Thyroid disorder Sibling Diabetes mellitus Thyroid disorder Other Thyroid disorder Social History Social History Smoking status: Former smoker Smoking end date: 02/19/08 Alcohol intake: never Substance use: never Do You Feel Safe in your Home?: Yes Lack of Transportation: No Lack of Food: Never True Current Housing: I Have Housing Concerned About Future Housing: No Difficulty Paying Gas/Electric Bills: No Difficulty Paying for Meds: No Currently Unemployed: No Education: Associate Degree Difficulty w/ Childcare or Family Care: No Gender identity (if verbalized by the patient): Female Comments At the time of my signature, I reviewed and agree with the nursing past medical, surgical, social, and family history. There is no relevant family history pertinent to the patient complaint. Exam Narrative: General: Well-developed, well nourished, in no apparent distress Head: Normocephalic, atraumatic Eyes: Pupils equally round and reactive to light bilaterally, EOM intact, sclera and conjunctive clear, no discharge, lids normal Ears: TMs intact and clear, ear canals clear, no drainage, grossly hearing normal. Nose: Nares patent, no discharge, no inflammation,
== END 2023-02-12 14:31 | disposition home or self-care (01) ==
PROVIDERS: Emergency Provider Nurse Practitioner Family; PCP Family Medicine
DX: R05.1 Acute cough (principal); J06.9 Acute upper respiratory infection, unspecified; Z87.891 Personal history of nicotine dependence; I34.1 Nonrheumatic mitral (valve) prolapse
CPT/HCPCS: 99213; G0463

== ENCOUNTER 2023-02-19 13:54 | Outpatient (CLI) | payer MEDICARE, SELFPAY ==
--- NOTE | ~2023-02-19 | XR_ITS ---
XR chest 2V DATE: 02/19/2023 14:06 INDICATION: Cough for one week TECHNIQUE: PA and lateral chest COMPARISON: May 23, 2020 CT lung screening February 26, 2020 2 view chest FINDINGS: Normal heart size. No hilar or mediastinal enlargement. No pulmonary infiltrate or consolid ation, pleural effusion or pulmonary vascular congestion or pneumothorax. Diffuse osteopenia. Status post cholecystectomy. Mild thoracic dextroscoliosis and degenerative change. IMPRESSION: No active cardiopulmonary disease Reviewed, dictated and finalized at location [facility]
== END 2023-02-19 13:55 | disposition home or self-care (01) ==
PROVIDERS: PCP Family Medicine; Visit Provider Family Medicine
DX: R05.9 Cough, unspecified (principal)
CPT/HCPCS: 71046

== ENCOUNTER 2023-05-16 14:45 | Outpatient (CLI) | payer MEDICARE, SELFPAY ==
--- NOTE | ~2023-05-16 | CT_ITS ---
EXAMINATION: CT lung screening DATE: 05/16/2023 15:06 INDICATION: Nicotine dependence TECHNIQUE: Computed tomography (CT) of the chest was performed without intravenous contrast. The dose -length product was 257.10 mGy-cm. Automated exposure control and iterative reconstruction technique were employed. COMPARISON: CT dated 05/23/2020 FINDINGS: Heart size normal. No significant pleural or pericardial effusion. Status post cholecystect vasiliy. No endobronchial lesions. No focal airspace disease. No pneumothorax. No thoracic lymphadenopath y. Status post cholecystectomy. Stable 3 mm left lower lobe nodule. Mild chronic anterior wedging of the midthoracic vertebra. IMPRESSION: 1. Lung-RADS category 2: Benign appearance or behavior. Continue annual screening with noncontrast lo w-dose chest CT in 12 months. Reviewed, dictated and finalized at location [facility]. IMPRESSION: 1. Lung-RADS category 2: Benign appearance or behavior. Continue annual screeni ng with noncontrast low-dose chest CT in 12 months.
== END 2023-05-16 14:46 | disposition home or self-care (01) ==
PROVIDERS: PCP Family Medicine; Visit Provider Family Medicine
DX: Z12.2 Encounter for screening for malignant neoplasm of respiratory organs (principal); Z87.891 Personal history of nicotine dependence
CPT/HCPCS: 71271

== ENCOUNTER 2023-06-25 12:53 | Outpatient (CLI) | payer MEDICARE, SELFPAY ==
--- NOTE | 2023-06-25 13:00 | ECG_ITS ---
SEE SCANNED COPY FOR CONFIRMED REPORT. MTDD
== END 2023-06-25 12:54 | disposition home or self-care (01) ==
LOC: ANHSURGERY 12:57
PROVIDERS: PCP Family Medicine; Visit Provider Plastic Surgery
DX: Z01.818 Encounter for other preprocedural examination (principal); I51.9 Heart disease, unspecified
CPT/HCPCS: 93005

== ENCOUNTER 2023-06-26 00:40 | Day surgery (SDC) | payer MEDICARE, SELFPAY ==
[2023-06-20 13:52] VITALS: BMI 33.8
--- NOTE | 2023-06-20 14:12 | PC.NURSE ---
Addendum entered by Grisel Melendez RN 06/20/23 14:17: DISREGARD THIS INSTRUCTION SHEET. SEE UPDATE Original Note: Report to the Outpatient Waiting Room, entrance under the green pavilion located off [facility], at time _6:00AM on date _06/26/23 . Planned Procedure Time: __7:30AM . Time changes happen often and if your time is changed the preop area will call you the afternoon before. - You and your visitor will be asked to self-screen and do not enter if you have any COVID symptoms. - A mask is optional within the hospital at this time. Patients may have clear liquids (water, carbonated beverages, clear teas, apple juice) until 3 hours prior to surgery with a maximum of 20 ounces. - No food from midnight until time of surgery. Take the following medications with a SIP of water the morning of surgery: ___CITALOPRAM DO NOT STOP ANY OF YOUR OTHER PRESCRIPTION MEDICATIONS PRIOR TO SURGERY ?EXCEPT THE FOLLOWING Medications to discontinue per physician ____HOLD ALL VITAMINS/SUPPLEMENTS 3 DAYS PRE-OP PER ANESTHESIA Date to take last dose 06/22/23 Please no make-up, nail british, hairspray, perfume, deodorant, or body powder the day of surgery. No jewelry (including any body piercings) or valuables the day of surgery, leave them at home. Please take a shower or bath the night before, or the morning of, surgery with an antibacterial soap. Wear comfortable, loose fitting clothing. - Jewelry must be removed prior to entering the operating room. Rings and piercings that are not removed may be cut off. - The hospital will not accept responsibility for valuables. - Please leave all valuables, including medications, at home the day of surgery. If you are going home after surgery, a licensed van driver must drive you home. - NO public transportation without another adult if you receive anesthesia. - We recommend that an adult stay with you for 24 hours following discharge. - We also recommend that you do not drive, make important decision, drink alcoholic beverages, or take any drugs that were not prescribed by your health care provider for at least 24 hours after your discharge time. Follow any additional instructions given to you from your surgeon. If you or anyone in your household have experienced Covid symptoms in the past week, please notify your surgeon or the nurse liaison at the phone number below for possible testing. Telephone instructions given to ____PATIENT and asked if any additional questions and then verbalized understanding. Patient advised to call surgeon office or pre surgery nurse liaison [phone] if any additional questions.
--- NOTE | 2023-06-20 14:15 | PC.NURSE ---
Report to the Outpatient Waiting Room, entrance under the green pavilion located off [facility], at time ___6:00AM____ on date ___06/26/23____. Planned Procedure Time: __7:30AM . Time changes happen often and if your time is changed the preop area will call you the afternoon before. - You and your visitor will be asked to self-screen and do not enter if you have any COVID symptoms. - A mask is optional within the hospital at this time. NO FOOD OR DRINKS FOR 8 HRS PRE-OP PER DR BE- LAST FOOD/DRINK IS AT 11:30PM NIGHT BEFORE SURGERY. Take the following medications with a SIP of water the morning of surgery: ____CITALOPRAM DO NOT STOP ANY OF YOUR OTHER PRESCRIPTION MEDICATIONS PRIOR TO SURGERY ?EXCEPT THE FOLLOWING Medications to discontinue per physician ___HOLD ALL VITAMINS/SUPPLEMENTS 3 DAYS PRE-OP PER ANESTHESIA Date to take last dose 06/22/23 Please no make-up, nail albanian, hairspray, perfume, deodorant, or body powder the day of surgery. No jewelry (including any body piercings) or valuables the day of surgery, leave them at home. Please take a shower or bath the night before, or the morning of, surgery with an antibacterial soap. Wear comfortable, loose fitting clothing. - Jewelry must be removed prior to entering the operating room. Rings and piercings that are not removed may be cut off. - The hospital will not accept responsibility for valuables. - Please leave all valuables, including medications, at home the day of surgery. If you are going home after surgery, a licensed local delivery driver must drive you home. - NO public transportation without another adult if you receive anesthesia. - We recommend that an adult stay with you for 24 hours following discharge. - We also recommend that you do not drive, make important decision, drink alcoholic beverages, or take any drugs that were not prescribed by your health care provider for at least 24 hours after your discharge time. Follow any additional instructions given to you from your surgeon. If you or anyone in your household have experienced Covid symptoms in the past week, please notify your surgeon or the nurse liaison at the phone number below for possible testing. Telephone instructions given to ___PATIENT and asked if any additional questions and then verbalized understanding. Patient advised to call surgeon office or pre surgery nurse liaison [phone] if any additional questions.
[2023-06-26] VITALS (7 sets, daily range): BP systolic 118–165; BP diastolic 54–89; PULSE 65–79; RESP 12–20; TEMP 36.2–37.3; O2SAT 98–100
--- NOTE | 2023-06-26 06:54 | WPDANESEPPF ---
Anes - Initial Pre Proc Eval Procedure: Operation Date: 06/26/23 07:30 Proposed Procedures p Bilateral Breast Reduction - Dinesh Paul MD Date/Time: 06/26/23 06:54 Surgeon: Dinesh Paul MD Pre Op Diagnosis: hypertophy of breasts Patient Data Age: 67 Gender: F Height: 1.7 m Weight: 99.9 kg Last Vital Signs Temp 37.3 C 06/26/23 06:30 Pulse 71 06/26/23 06:30 Resp 14 06/26/23 06:30 BP 131/60 06/26/23 06:30 Pulse Ox 98 06/26/23 06:30 O2 Del Method Room Air 06/26/23 06:30 Allergies Allergy/AdvReac Type Severity Reaction Status Date / Time fexofenadine [From Jenny-D] Allergy Severe Hives Verified 06/20/23 13:46 pseudoephedrine Allergy Severe Hives Verified 06/20/23 13:46 [From Jenny-D] melatonin Allergy Mild Rash Verified 06/20/23 13:46 brexpiprazole Allergy Unknown ANXIOUS, Verified 06/20/23 13:46 AGITATION Penicillins Allergy Unknown Rash Verified 06/20/23 13:46 zolpidem Allergy Unknown AGITATION Verified 06/20/23 13:46 clindamycin Allergy Hives Verified 06/20/23 13:46 Home Medications Medication Instructions Recorded Confirmed Type aripiprazole 10 mg tablet 10 mg PO HS 01/19/23 06/20/23 History cholecalciferol (vitamin D3) 10 100 mcg PO DAILY 01/19/23 06/20/23 History mcg (400 unit) capsule (Vitamin D3) citalopram 20 mg tablet 20 mg PO QAM 01/19/23 06/20/23 History metoprolol succinate 25 mg 25 mg PO HS 01/19/23 06/20/23 History tablet,extended release 24 hr omega-3 fatty acids 2 cap PO DAILY 01/19/23 06/20/23 History rosuvastatin 10 mg tablet 10 mg PO HS 01/19/23 06/20/23 History vitamin B complex (B 1 tablet PO 2XW 01/19/23 06/20/23 History Complex-Vitamin B12 tablet) docusate sodium 100 mg capsule 100 mg PO DAILY 06/20/23 06/20/23 History (Stool Softener) magnesium 250 mg tablet 250 mg PO DAILY 06/20/23 06/20/23 History Patient hx anesthesia problems: none Family hx anesthesia problems: none Results Review: All pre-operative results and documents have been reviewed as part of the pre-operative evaluation. [facility] Past Medical History Medical History Arthritis High blood cholesterol History of bipolar disorder Hypertension Mitral valve prolapse Surgical History Surgical History History of cholecystectomy History of hysterectomy History of tonsillectomy History of tubal ligation Family History Family History Father Diabetes mellitus Family history of elevated blood lipids Hypertension Heart disease Mother Family history of elevated blood lipids Hypertension Depression Cerebrovascular accident Thyroid disorder Sibling Diabetes mellitus Thyroid disorder Other Thyroid disorder Social History Social History Smoking packs per day: 1 Smoking cigarettes per day: 20.0 Years smoked: 30 Smoking pack-years: 30.00 Smoking status: Former smoker Tobacco type: cigarettes Smoking end date: 08/18/10 Alcohol intake: never Substance use: never Do You Feel Safe in your Home?: Yes Lack of Transportation: No Lack of Food: Never True Current Housing: I Have Housing Concerned About Future Housing: No Difficulty Paying Gas/Electric Bills: No Difficulty Paying for Meds: No Currently Unemployed: No Education: Associate Degree Difficulty w/ Childcare or Family Care: No Living arrangements: alone Gender identity (if verbalized by the patient): Female Spiritual care concerns: No Anes - Eval Final PreProcedure Day of Procedure 06/26/23 06:54 Patient weight: obese Heart: regular rate and rhythm Lungs: clear to auscultation Airway: Mallampati scale class III Neurological: alert and oriented Last oral intake: >/= 8 hours ASA classification: II
[2023-06-26] MEDS: LACTATED RINGERS 1,000 ML 30 ML IV CONT (07:00)
--- NOTE | 2023-06-26 07:06 | PM.HPGS ---
History of Present Illness History of Present Illness Chief complaint: hypertophy of breasts Narrative: Patient seen and examined in pre-operative holding area. No interval change in medical history or symptoms. Patient remembers previous discussion of benefits and alternatives to procedure. Continues to desire to proceed with bilateral breast reduction . I reviewed the risks including but not limited to bleeding ,infection, asymmetry, undesireable cosmetic appearance, partial/total skin/nipple loss, no change or worsening of symptoms, change in sensation. I discussed the possible use of assistants and their level of participation in the case. Patient stated understanding and signed the consent form wishing to proceed Review of Systems Review of Systems: All systems reviewed & are unremarkable except as noted in HPI and below PMFSH Past Medical History Medical History Arthritis High blood cholesterol History of bipolar disorder Hypertension Mitral valve prolapse Surgical History Surgical History History of cholecystectomy History of hysterectomy History of tonsillectomy History of tubal ligation Family History Family History Father Diabetes mellitus Family history of elevated blood lipids Hypertension Heart disease Mother Family history of elevated blood lipids Hypertension Depression Cerebrovascular accident Thyroid disorder Sibling Diabetes mellitus Thyroid disorder Other Thyroid disorder Social History Social History Smoking packs per day: 1 Smoking cigarettes per day: 20.0 Years smoked: 30 Smoking pack-years: 30.00 Smoking status: Former smoker Tobacco type: cigarettes Smoking end date: 08/18/10 Alcohol intake: never Substance use: never Do You Feel Safe in your Home?: Yes Lack of Transportation: No Lack of Food: Never True Current Housing: I Have Housing Concerned About Future Housing: No Difficulty Paying Gas/Electric Bills: No Difficulty Paying for Meds: No Currently Unemployed: No Education: Associate Degree Difficulty w/ Childcare or Family Care: No Living arrangements: alone Gender identity (if verbalized by the patient): Female Spiritual care concerns: No Meds Home Medications and Allergies Home Medications Medication Instructions Recorded Confirmed Type aripiprazole 10 mg tablet 10 mg PO HS 01/19/23 06/20/23 History cholecalciferol (vitamin D3) 10 100 mcg PO DAILY 01/19/23 06/20/23 History mcg (400 unit) capsule (Vitamin D3) citalopram 20 mg tablet 20 mg PO QAM 01/19/23 06/20/23 History metoprolol succinate 25 mg 25 mg PO HS 01/19/23 06/20/23 History tablet,extended release 24 hr omega-3 fatty acids 2 cap PO DAILY 01/19/23 06/20/23 History rosuvastatin 10 mg tablet 10 mg PO HS 01/19/23 06/20/23 History vitamin B complex (B 1 tablet PO 2XW 01/19/23 06/20/23 History Complex-Vitamin B12 tablet) docusate sodium 100 mg capsule 100 mg PO DAILY 06/20/23 06/20/23 History (Stool Softener) magnesium 250 mg tablet 250 mg PO DAILY 06/20/23 06/20/23 History Allergies Allergy/AdvReac Type Severity Reaction Status Date / Time fexofenadine [From Jenny-D] Allergy Severe Hives Verified 06/20/23 13:46 pseudoephedrine Allergy Severe Hives Verified 06/20/23 13:46 [From Jenny-D] melatonin Allergy Mild Rash Verified 06/20/23 13:46 brexpiprazole Allergy Unknown ANXIOUS, Verified 06/20/23 13:46 AGITATION Penicillins Allergy Unknown Rash Verified 06/20/23 13:46 zolpidem Allergy Unknown AGITATION Verified 06/20/23 13:46 clindamycin Allergy Hives Verified 06/20/23 13:46 Vital Signs Vital Signs - 24 hr 06/26/23 06:30 Temperature 37.3 C Pulse Rate 71 Respiratory Rate 14 Blood Pressure
--- NOTE | 2023-06-26 07:07 | P.OP_ITS ---
Procedure Note - Detailed Date of Procedure 06/26/23 Pre-op Diagnosis hypertophy of breasts Post-op Diagnosis Same Procedure Performed b/l breast reduction Surgeon Dinesh Paul MD Circulating Nurse Karen Pearson PA-C Anesthesia General Description of Procedure The patient was seen in the preoperative holding area, consent form was signed and the breasts were marked for inferior pedicle Mccracken pattern reduction. The patient was taken back to the operating room and placed on the table in a supine position. Time-out was performed with Anesthesia, surgeon, and staff agreeing on patient's name, site, and surgery to be performed. SCDs were placed in the lower extremities and inflated. Antibiotics were given IV. After general anesthesia was administered the breasts were prepped and draped in usual sterile fashion. I first took my attention to the right breast were I used a saline moistened lap pad and a Jerardo clamp to create a breast tourniquet.. I used a 38 mm nipple Sizer to circumscribe the nipple-areolar complex and then proceeded with de epithelializing a 7 cm wide inferior pedicle. I made my other skin incisions with a 15 blade scalpel. I then used Bovie cautery to elevate my superior skin flaps and Luis's plane down to the level of the chest wall and exposing the breast tissue I proceeded with resection of 550 g of tissue from the right breast. I irrigated with normal saline and hemostasis with Bovie cautery. I plicated the pedicle with 2-0 Vicryl suture. I closed the T junction with 2-0 Prolene. 3-0 Vicryl was used for dermis. The nipple was brought out 5.5 cm above the inframammary fold at the most prominent portion of the breast at the breast midline and secured with 3-0 Vicryl suture. 4-0 Monocryl was used for subcuticular closure. The nipple was viable with good cap refill. I took my attention to the left breast where the same procedure was performed. I used the saline moistened lap pad and Jerardo plan to create a breast tourniquet. 38 mm nipple Sizer was used to circumscribe the nipple-areolar complex. Proceeded with de epithelializing a 7 cm wide inferior pedicle. I made my other skin incisions and elevated skin flaps with Bovie cautery increase plane to close the breast tissue. I then proceeded with resection of 511 g of tissue from the left breast. This resulted in a breast that appeared to be similar in volume and shape to the right breast. I plicated the pedicle with 2- 0 Vicryl suture. Hemostasis was obtained with Bovie cautery after irrigation with normal saline. The T-junction was closed with 2-0 Prolene. 3-0 Vicryl was used for dermis. Again the nipple was brought out 5-1/2 cm above the inframammary fold at the most prominent portion of the breast at the breast midline and secured with 3-0 Vicryl suture. 4-0 Monocryl was used for subcuticular closure. The nipple appeared viable with good cap refill. There was reasonable symmetry and shape to the breasts. 20 cc of 1% lidocaine with epinephrine and 0.5% Marcaine plain was injected along the anterior axillary line and inframammary fold of each breast. A dressing of Mastisol, Steri-Strips, 4x4s, ABDs and a breast binder was then applied. The patient was awakened from anesthesia and transferred to the recovery room in stable condition. Complications: None Estimated blood loss 50 cc Disposition: Patient tolerated the procedure well and be going later today. Karen Pearson PA-C was essential for positioniig, retraction, resection, closure and dressing placement [facility] Billing Surgery - Charge Forward: Surgery Billing ([id number] same for karen adding mod )
[2023-06-26] MEDS: ceFAZolin 2 GM/D5W 50 ML 2 GM/50 ML BAG IVPB (07:32)
[2023-06-26] MEDS: LIDO 1%/EPINEPHRINE 1:100,000 50 ML VIAL 15 ML INFILTRATE (07:59)
[2023-06-26] MEDS: oxyCODONE HCL (*CRX) 5 MG TAB IR PO (10:30)
--- NOTE | 2023-06-26 10:42 | SUR.OPER ---
MD riojasayed used of formalin for breast specimens
== END 2023-06-26 11:10 | disposition home or self-care (01) ==
PROVIDERS: PCP Family Medicine; Visit Provider Plastic Surgery
PROC: 0HBV0ZZ Excision of Bilateral Breast, Open Approach (ICD-10-PCS; CPT 19318; principal; 2023-06-26 07:30)
DX: N62 Hypertrophy of breast (principal); I10 Essential (primary) hypertension; E78.00 Pure hypercholesterolemia, unspecified; F31.9 Bipolar disorder, unspecified; Z87.891 Personal history of nicotine dependence; E66.9 Obesity, unspecified; Z68.34 Body mass index [BMI] 34.0-34.9, adult
CPT/HCPCS: 19318; 88305; 93005; A9270; J0690; J1100; J1170; J2250; J2405; J2704; J3010; J7120

== ENCOUNTER 2023-07-30 14:30 | Outpatient (CLI) | payer MEDICARE, SELFPAY ==
--- NOTE | ~2023-07-30 | US_ITS ---
EXAMINATION: US thyroid DATE: 07/30/2023 14:45 INDICATION: Nontoxic goiter, unspecified. TECHNIQUE: Multiple ultrasound images of the thyroid were obtained. COMPARISON: None. FINDINGS: The right thyroid lobe measures 4.6 x 1.4 x 1.1 cm. The left thyroid lobe measures 4.6 x 1.4 x 1.5 c m. In the left thyroid lobe, there is a 1.5 cm solid, hypoechoic, wider than tall nodule with ill-de fined margin and punctate echogenic foci (TI-RADS TR5). In the left thyroid lobe, there is an 11 mm s olid, hypoechoic, wider than tall nodule with ill-defined margin without echogenic foci (TR4). In the right thyroid lobe, there is a 9 mm solid, hypoechoic, wider than tall nodule with irregular margins without echogenic foci (TR4). IMPRESSION: 1. Multinodular goiter. Ultrasound-guided fine-needle aspiration of the 1.5 cm left thyroid nodule is recommended. Reviewed, dictated and finalized at location E.
== END 2023-07-30 14:31 ==
PROVIDERS: PCP Family Medicine; Visit Provider Family Medicine
DX: E04.2 Nontoxic multinodular goiter (principal)
CPT/HCPCS: 76536

== ENCOUNTER 2023-08-19 12:35 | Outpatient (CLI) | payer MEDICARE, SELFPAY ==
--- NOTE | ~2023-08-19 | US_ITS ---
EXAMINATION: US FNA w image guidance DATE: 08/19/2023 13:20 INDICATION: Nontoxic single thyroid nodule. TECHNIQUE: The procedure and its benefits and risks were discussed with the patient. Risks specifically discusse d included bleeding. The patient verbalized understanding of the risks and agreed to proceed. The nec k was prepped and draped in the usual sterile manner. 1% lidocaine was used for local anesthesia. 6 passes were made with a 25G needle into the lesion under ultrasound guidance. There were no immedia te complications. FINDINGS: Grayscale ultrasound images demonstrate needles advanced into a 2.0 cm nodule in left thyroid lobe fo r biopsy. IMPRESSION: 1. Ultrasound-guided fine needle aspiration of a left thyroid nodule. Reviewed, dictated and finalized at location A.
== END 2023-08-19 12:36 | disposition home or self-care (01) ==
PROVIDERS: PCP Family Medicine; Visit Provider Family Medicine
DX: E04.1 Nontoxic single thyroid nodule (principal)
CPT/HCPCS: 10005; 88172; 88173; 88305

== ENCOUNTER 2023-10-07 15:30 | Emergency (ER) | payer MEDICARE, SELFPAY ==
[2023-10-07 15:35] VITALS: BP 118/60; PULSE 77; RESP 16; TEMP 36.7; O2SAT 100
--- NOTE | 2023-10-07 16:06 | ED.ABDPAIN ---
HPI - Abdominal Pain General Chief Complaint: Urogenital-Female Stated Complaint: urinary issue Time Seen by Provider: 10/07/23 16:06 Source: patient, RN notes reviewed and old records reviewed Mode of arrival: ambulatory Limitations: no limitations History of Present Illness HPI narrative: Patient presents to [facility] with complaints of urinary urgency, frequency, burning. She reports symptoms have been present for 36 to 48 hours. She reports symptoms are worsening. She denies any fever, chills, sweats. She reports a dull ache across both sides of her back, but denies any abdominal pain. She denies any nausea or vomiting. Voices no other concerns or complaints at this time. Related Data Home Medications Medication Instructions Recorded Confirmed aripiprazole 10 mg tablet 10 mg PO HS 01/19/23 10/07/23 citalopram 20 mg tablet 20 mg PO QAM 01/19/23 10/07/23 metoprolol succinate 25 mg 25 mg PO HS 01/19/23 10/07/23 tablet,extended release 24 hr rosuvastatin 10 mg tablet 10 mg PO HS 01/19/23 10/07/23 Allergies Allergy/AdvReac Type Severity Reaction Status Date / Time fexofenadine [From Jenny-D] Allergy Severe Hives Verified 09/24/23 13:49 pseudoephedrine Allergy Severe Hives Verified 09/24/23 13:49 [From Jenny-D] melatonin Allergy Mild Rash Verified 09/24/23 13:49 brexpiprazole Allergy Unknown ANXIOUS, Verified 09/24/23 13:49 AGITATION Penicillins Allergy Unknown Rash Verified 09/24/23 13:49 zolpidem Allergy Unknown AGITATION Verified 09/24/23 13:49 clindamycin Allergy Hives Verified 09/24/23 13:49 Review of Systems Review of Systems: All systems reviewed & are unremarkable except as noted in HPI and below Constitutional: Constitutional: Reports no additional constitutional complaints ENT: Reports system reviewed and no additional complaints, except as documented Cardiovascular: Cardiovascular: Reports no additional cardiovascular complaints Respiratory: Respiratory: Reports no additional respiratory complaints Gastrointestinal: Gastrointestinal: Reports no additional gastrointestinal complaints Genitourinary: Genitourinary: Reports as per HPI, Reports nocturia, Reports dysuria, Denies flank pain, Reports urinary hesitancy and Reports urinary urgency Musculoskeletal: Musculoskeletal: Reports back pain PMFSH Past Medical History Medical History Arthritis High blood cholesterol History of bipolar disorder Hypertension Mitral valve prolapse Surgical History Surgical History History of cholecystectomy History of hysterectomy History of tonsillectomy History of tubal ligation Family History Family History Father Diabetes mellitus Family history of elevated blood lipids Hypertension Heart disease Mother Family history of elevated blood lipids Hypertension Depression Cerebrovascular accident Thyroid disorder Sibling Diabetes mellitus Thyroid disorder Other Thyroid disorder Social History Social History (Updated 09/24/23 @ 13:50 by Clemencia Mcgee) Social History: Caffeine- coffee/tea Smoking packs per day: 1 Smoking cigarettes per day: 20.0 Years smoked: 30 Smoking pack-years: 30.00 Smoking status: Former smoker Tobacco type: cigarettes Smoking end date: 08/18/10 Alcohol intake: never Substance use: never Substance use type: does not use Do You Feel Safe in your Home?: Yes Lack of Transportation: No Lack of Food: Never True Current Housing: I Have Housing Concerned About Future Housing: No Difficulty Paying Gas/Electric Bills: No Difficulty Paying for Meds: No Currently Unemployed: No Education: Associate Degree Difficulty w/ Childcare or Family Care: No Living arrangements: alone Gender identity (if verbalized by the patient): Female Spiritual care concer
[2023-10-07 16:52] LABS: EDUAAPPEAR Clear; EDUABILI Negative; EDUABLOOD 2+; EDUACOLOR1 Yellow; EDUAGLUCOSE Negative; EDUAKETONE Negative; EDUALEUKO 1+; EDUANITRATE Negative; EDUAPH 5.5; EDUAPROTEIN 1+; EDUASPGRAVITY 1.025; EDUAUROBILI 0.2
== END 2023-10-07 17:14 | disposition home or self-care (01) ==
PROVIDERS: Emergency Provider Nurse Practitioner Family; PCP Family Medicine
DX: N39.0 Urinary tract infection, site not specified (principal); Z87.891 Personal history of nicotine dependence; M19.90 Unspecified osteoarthritis, unspecified site; E78.00 Pure hypercholesterolemia, unspecified; I10 Essential (primary) hypertension; I34.1 Nonrheumatic mitral (valve) prolapse
CPT/HCPCS: 81003; 87086; 87088; 99213; G0463